=== PATIENT | female | born 1945 | race African-American/Black ===

== ENCOUNTER 2019-06-25 04:07 | Inpatient (IN) | payer MEDICARE, MEDICAID ==
[2019-06-25] MEDS ORDERED: IPRATROPIUM 0.02% NEBU 2.5 ML IH ONE ×2 (04:28→06:39)
[2019-06-25] MEDS ORDERED: ALBUTEROL 2.5 MG/3 ML NEBU IH ONE ×2 (04:28→06:39)
[2019-06-25] MEDS ORDERED: MAGNESIUM SULFATE 2 GM/50 ML BAG IV ONE (04:35)
[2019-06-25] MEDS ORDERED: methylPREDNISolone Sod Succinate 125 MG/2 ML INJ IV ONE (04:35)
[2019-06-25 04:51] LABS: Basophils % (Auto) 0.5 % (0.0-1.8); Eosinophils # (Auto) 0.7 K/mm3 (0.0-0.4); Eosinophils % (Auto) 7.3 % (0.0-4.3); Hematocrit 43.8 % (30.3-42.9); Hemoglobin 14.2 gm/dl (10.1-14.3); Lymphocytes # (Auto) 4.1 K/mm3 (1.2-5.4); Lymphocytes % (Auto) 40.3 % (13.4-35.0); Mean Corpuscular HGB Conc 33 % (30-34); Mean Corpuscular Volume 82 fl (79-97); Monocytes # (Auto) 0.7 K/mm3 (0.0-0.8); Monocytes % (Auto) 7.2 % (0.0-7.3); Platelet Count 194 K/mm3 (140-440); Red Blood Count 5.36 M/mm3 (3.65-5.03); Red Cell Distribution Width 14.4 % (13.2-15.2)
[2019-06-25 05:01] LABS: INR 0.94 (0.87-1.13)
[2019-06-25 05:02] LABS: Partial Thromboplastin Time 30.3 Sec. (24.2-36.6)
[2019-06-25 05:05] LABS: BUN/Creatinine Ratio 37; Blood Urea Nitrogen 26 mg/dL (7-17); Calcium 8.7 mg/dL (8.4-10.2); Hemolysis Index 15
--- NOTE | 2019-06-25 05:05 | XRay Report ---
CHEST 1 VIEW INDICATION / CLINICAL INFORMATION: sob. COMPARISON: Chest radiograph 02/11/2015 FINDINGS: SUPPORT DEVICES: None. HEART / MEDIASTINUM: Stable cardiomegaly. There is prominence of the main pulmonary arteries suggesti ng pulmonary arterial hypertension. LUNGS / PLEURA: No significant pulmonary or pleural abnormality. No pneumothorax. ADDITIONAL FINDINGS: No significant additional findings. IMPRESSION: 1. No acute cardiopulmonary abnormality identified. 2. Stable cardiomegaly, and prominence of the main pulmonary arteries suggesting pulmonary arterial h ypertension. Signer Name: Tali Addison MD Signed: 06/25/2019 5:00 AM Workstation Name: [id number]
--- NOTE | 2019-06-25 06:22 | Emergency Department Report ---
ED General Adult HPI - General Chief complaint: Dyspnea/Respdistress Stated complaint: SOB, COUGHING, GLORIA WITH INHALER Time Seen by Provider: 06/25/19 06:08 Source: family, RN notes reviewed, old records reviewed Mode of arrival: Wheelchair Limitations: Language Barrier - History of Present Illness Initial comments: [place] Citizen dehorner: [id number] This is a 73-year-old female. This patient is not known to this provider previously. She does not know who her primary care doctor is. She is not sure what past medical history she has. Apparently, as per documentation, may have a history of hypertension, congestive heart failure, asthma Reportedly also has a history of chronic back pain, leg pain, and sleep apnea patient presents to the ER today with the complaints of pain and the shortness of breath, dry cough. This has been going on for 2-3 days. She denies DVT, pulmonary embolism risk factors. She endorses chronic back pain. She denies additional pain. She is given albuterol, Atrovent, steroids and magnesium. This did not really improve her symptoms. After this aforementioned therapy, still found to be hypoxic, saturating 89, 90% on room air, with labored breathing. Arterial blood gas demonstrates PaO2 of 60 on room air, consistent with presumed acute hypoxemic respiratory failure. -: Gradual Severity scale (0 -10): 0 Consistency: constant Improves with: rest Worsens with: movement - Related Data Home Medications Medication Instructions Recorded Confirmed Last Taken Benazepril HCl [Lotensin] 20 mg PO DAILY 06/25/19 06/25/19 Unknown Hydrochlorothiazide 12.5 mg PO DAILY 06/25/19 06/25/19 Unknown Meloxicam [Mobic] 7.5 mg PO BID 06/25/19 06/25/19 Unknown Simvastatin 40 mg PO HS 06/25/19 06/25/19 Unknown Previous Rx's Medication Instructions Recorded Last Taken Type Ranitidine HCl [Zantac] 150 mg PO QDAY #30 tablet 02/15/15 Unknown Rx Allergies Allergy/AdvReac Type Severity Reaction Status Date / Time amoxicillin Allergy Unknown Verified 06/25/19 04:14 ED Review of Systems ROS: Stated complaint: SOB, COUGHING, GLORIA WITH INHALER Other details as noted in HPI Constitutional: malaise Eyes: denies: eye discharge ENT: congestion Respiratory: shortness of breath, wheezing Cardiovascular: denies: syncope Gastrointestinal: denies: vomiting Genitourinary: denies: dysuria Musculoskeletal: back pain (chronicchronic) Skin: denies: lesions Neurological: weakness ED Past Medical Hx - Past Medical History Previous Medical History?: Yes Hx Hypertension: Yes Hx Congestive Heart Failure: Yes Hx Asthma: Yes Additional medical history: chronic back/leg pain. sleep apnea (cpap) - Surgical History Past Surgical History?: No - Social History Smoking Status: Never Smoker Substance Use Type: None - Medications Home Medications: Home Medications Medication Instructions Recorded Confirmed Last Taken Type Ranitidine HCl [Zantac] 150 mg PO QDAY #30 tablet 02/15/15 06/25/19 Unknown Rx Benazepril HCl [Lotensin] 20 mg PO DAILY 06/25/19 06/25/19 Unknown History Hydrochlorothiazide 12.5 mg PO DAILY 06/25/19 06/25/19 Unknown History Meloxicam [Mobic] 7.5 mg PO BID 06/25/19 06/25/19 Unknown History Simvastatin 40 mg PO HS 06/25/19 06/25/19 Unknown History ED Physical Exam - General Limitations: Language Barrier General appearance: alert, anxious - Head Head exam: Present: atraumatic, normocephalic - Eye Eye exam: Present: normal appearance, EOMI. Absent: nystagmus - ENT ENT exam: Present: normal exam, normal orophraynx, mucous membranes moist, no rmal external ear exam - Neck Neck exam: Present: normal inspection, full ROM - Respiratory Respiratory exam: Present: respiratory distress, wheezes, rhonchi, accessory muscle use - Cardiovascular Cardiovascular Exam: Present: regular rate, normal rhythm, normal heart sounds. Absent: bradycardia, tachycardia, irregular rhythm, systolic murmur, diastolic murmur, rubs, gallop - GI/Abdominal GI/Abdominal exam: Present: soft. Absent: distended, tenderness, guarding, rebound, rigid, pulsatile mass - Extremities Exam Extremities exam: Present: normal inspection, full ROM, other (2+ pulses noted in the bilateral upper, lower extremities. Compartments soft. No long bony tenderness. The pelvis is stable.). Absent: pedal edema, joint swelling, calf tenderness - Back Exam Back exam: Present: normal inspection, full ROM. Absent: tenderness, CVA tenderness (R), CVA tenderness (L), paraspinal tenderness, vertebral tenderness - Neurological Exam Neurological exam: Present: alert, other (there is no facial droop. The tongue is midline. There is 5/5 strength bilateral upper, lower extremities.) - Psychiatric Psychiatric exam: Present: anxious - Skin Skin exam: Present: warm, dry, intact, normal color. Absent: rash ED Course Vital Signs 06/25/19 06/25/19 06/25/19 04:09 04:22 04:30 Temperature 98.9 F Pulse Rate 84 78 80 Pulse Rate [ Anterior Bilateral Throughout] Respiratory 16 19 28 H Rate Respiratory Rate [Anterior Bilateral Throughout] Blood Pressure 146/74 133/72 Blood Pressure [Left] O2 Sat by Pulse 90 89 97 Oximetry 06/25/19 06/25/19 06/25/19 04:33 04:36 04:46 Temperature Pulse Rate 77 81 Pulse Rate [ 89 Anterior Bilateral Throughout] Respiratory 20 23 Rate Respiratory 21 Rate [Anterior Bilateral Throughout] Blood Pressure 133/72 Blood Pressure 133/72 [Left] O2 Sat by Pulse 100 100 Oximetry 06/25/19 06/25/19 06/25/19 05:00 05:16 05:30 Temperature Pulse Rate 83 83 87 Pulse Rate [ Anterior Bilateral Throughout] Respiratory 25 H 20 15 Rate Respiratory Rate [Anterior Bilateral Throughout] Blood Pressure 133/72 133/72 133/72 Blood Pressure [Left] O2 Sat by Pulse 100 100 96 Oximetry 06/25/19 06/25/19 06/25/19 05:46 06:00 06:16 Temperature Pulse Rate 84 86 88 Pulse Rate [ Anterior Bilateral Throughout] Respiratory 18 32 H 18 Rate Respiratory Rate [Anterior Bilateral Throughout] Blood Pressure 133/72 133/72 133/72 Blood Pressure [Left] O2 Sat by Pulse 97 98 Oximetry 06/25/19 06/25/19 06/25/19 06:17 06:31 06:45 Temperature Pulse Rate 87 88 112 H Pulse Rate [ Anterior Bilateral Throughout] Respiratory 18 20 32 H Rate Respiratory Rate [Anterior Bilateral Throughout] Blood Pressure 122/62 122/62 Blood Pressure 122/62 [Left] O2 Sat by Pulse 99 92 93 Oximetry 06/25/19 06/25/19 06/25/19 07:01 07:15 07:31 Temperature Pulse Rate 90 90 87 Pulse Rate [ Anterior Bilateral Throughout] Respiratory 21 16 20 Rate Respiratory Rate [Anterior Bilateral Throughout] Blood Pressure 122/62 122/62 122/62 Blood Pressure [Left] O2 Sat by Pulse 91 90 99 Oximetry 06/25/19 06/25/19 06/25/19 07:33 07:45 07:58 Temperature 98.1 F Pulse Rate 88 90 Pulse Rate [ 80 Anterior Bilateral Throughout] Respiratory 18 29 H Rate Respiratory 18 Rate [Anterior Bilateral Throughout] Blood Pressure 122/62 Blood Pressure 122/62 [Left] O2 Sat by Pulse 100 95 Oximetry 06/25/19 06/25/19 06/25/19 08:15 08:45 09:01 Temperature Pulse Rate 89 91 H 94 H Pulse Rate [ Anterior Bilateral Throughout] Respiratory 19 21 22 Rate Respiratory Rate [Anterior Bilateral Throughout] Blood Pressure 123/68 123/68 123/68 Blood Pressure [Left] O2 Sat by Pulse 100 100 100 Oximetry 06/25/19 06/25/19 06/25/19 09:11 09:21 09:31 Temperature Pulse Rate 96 H 97 H 98 H Pulse Rate [ Anterior Bilateral Throughout] Respiratory 17 21 20 Rate Respiratory Rate [Anterior Bilateral Throughout] Blood Pressure 123/68 123/68 123/68 Blood Pressure [Left] O2 Sat by Pulse 100 100 100 Oximetry 06/25/19 06/25/19 09:41 09:51 Temperature Pulse Rate 100 H 102 H Pulse Rate [ Anterior Bilateral Throughout] Respiratory 21 18 Rate Respiratory Rate [Anterior Bilateral Throughout] Blood Pressure 123/68 123/68 Blood Pressure [Left] O2 Sat by Pulse 98 95 Oximetry ED Medical Decision Making - Lab Data Result diagrams: 06/26/19 05:11 06/26/19 05:11 Vital Signs 06/25/19 06/25/19 06/25/19 04:09 04:33 04:36 Temperature 98.9 F Pulse Rate 84 77 Pulse Rate [ 89 Anterior Bilateral Throughout] Respiratory 16 20 Rate Respiratory 21 Rate [Anterior Bilateral Throughout] Blood Pressure 146/74 Blood Pressure 133/72 [Left] O2 Sat by Pulse 90 100 Oximetry 06/25/19 06:17 Temperature Pulse Rate 87 Pulse Rate [ Anterior Bilateral Throughout] Respiratory 18 Rate Respiratory Rate [Anterior Bilateral Throughout] Blood Pressure Blood Pressure 122/62 [Left] O2 Sat by Pulse 99 Oximetry Lab Results 06/25/19 06/25/19 06/25/19 Range/Units Unknown Unknown Unknown WBC 10.1 (4.5-11.0) K/mm3 RBC 5.36 H (3.65-5.03) M/mm3 Hgb 14.2 (10.1-14.3) gm/dl Hct 43.8 H (30.3-42.9) % MCV 82 (79-97) fl MCH 27 L (28-32) pg MCHC 33 (30-34) % RDW 14.4 (13.2-15.2) % Plt Count 194 (140-440) K/mm3 Lymph % (Auto) 40.3 H (13.4-35.0) % [place] % (Auto) 7.2 (0.0-7.3) % Eos % (Auto) 7.3 H (0.0-4.3) % Baso % (Auto) 0.5 (0.0-1.8) % Lymph # 4.1 (1.2-5.4) K/mm3 [place] # 0.7 (0.0-0.8) K/mm3 Eos # 0.7 H (0.0-0.4) K/mm3 Baso # 0.0 (0.0-0.1) K/mm3 Seg Neutrophils % 44.7 (40.0-70.0) % Seg Neutrophils # 4.5 (1.8-7.7) K/mm3 PT 12.3 (12.2-14.9) Sec. INR 0.94 (0.87-1.13) APTT 30.3 (24.2-36.6) Sec. Sodium (137-145) mmol/L Potassium (3.6-5.0) mmol/L Chloride (98-107) mmol/L Carbon Dioxide (22-30) mmol/L Anion Gap mmol/L BUN (7-17) mg/dL Creatinine (0.7-1.2) mg/dL Estimated GFR ml/min BUN/Creatinine Ratio % Glucose (65-100) mg/dL Calcium (8.4-10.2) mg/dL Troponin T < 0.010 (0.00-0.029) ng/mL NT-Pro-B Natriuret Pep (0-900) pg/mL 06/25/19 Range/Units Unknown WBC (4.5-11.0) K/mm3 RBC (3.65-5.03) M/mm3 Hgb (10.1-14.3) gm/dl Hct (30.3-42.9) % MCV (79-97) fl MCH (28-32) pg MCHC (30-34) % RDW (13.2-15.2) % Plt Count (140-440) K/mm3 Lymph % (Auto) (13.4-35.0) % [place] % (Auto) (0.0-7.3) % Eos % (Auto) (0.0-4.3) % Baso % (Auto) (0.0-1.8) % Lymph # (1.2-5.4) K/mm3 [place] # (0.0-0.8) K/mm3 Eos # (0.0-0.4) K/mm3 Baso # (0.0-0.1) K/mm3 Seg Neutrophils % (40.0-70.0) % Seg Neutrophils # (1.8-7.7) K/mm3 PT (12.2-14.9) Sec. INR (0.87-1.13) APTT (24.2-36.6) Sec. Sodium 143 (137-145) mmol/L Potassium 4.0 (3.6-5.0) mmol/L Chloride 103.4 (98-107) mmol/L Carbon Dioxide 30 (22-30) mmol/L Anion Gap 14 mmol/L BUN 26 H (7-17) mg/dL Creatinine 0.7 (0.7-1.2) mg/dL Estimated GFR > 60 ml/min BUN/Creatinine Ratio 37 % Glucose 118 H (65-100) mg/dL Calcium 8.7 (8.4-10.2) mg/dL Troponin T (0.00-0.029) ng/mL NT-Pro-B Natriuret Pep 72.86 (0-900) pg/mL - EKG Data -: EKG Interpreted by Nc EKG shows normal: sinus rhythm Rate: normal - EKG Data 06/25/19 07:38 EKG today has motion artifact. This is a sinus rhythm, 72 bpm, normal axis, OK interval is prolonged, QTC is prolonged, there is an incomplete right bundle branch block, there is borderline left ventricular hypertrophy, the EKG is abn ormal, it appears to be unchanged from prior EKG January 2015. EKG is not consistent with ST elevation myocardial infarction. - Radiology Data Radiology results: report reviewed, image reviewed Print Report Referring Physician: NOHELIA DICKERSON Patient Name: JINNY GAMBOA Date of : 1945 Sex: Female Report Date: 2019-06-25 Report Status: Finalized Findings [facility] [address] [place] [address] XRay Report Signed Patient: JINNY GAMBOA MR#: [id number] : 1945 A cct:[id number] Age/Sex: 73 / F ADM Date: 06/25/19 Loc: ED Attending Dr: Ordering Physician: NOHELIA DICKERSON MD Date of Service: 06/25/19 Procedure(s): XR chest 1V ap Accession Number(s): [id number] cc: NOHELIA DICKERSON MD Fluoro Time In Minutes: CHEST 1 VIEW INDICATION / CLINICAL INFORMATION: sob. COMPARISON: Chest radiograph 02/11/2015 FINDINGS: SUPPORT DEVICES: None. HEART / MEDIASTINUM: Stable cardiomegaly. There is prominence of the main pulmonary arteries suggesting pulmonary arterial hypertension. LUNGS / PLEURA: No significant pulmonary or pleural abnormality. No pneumothorax. ADDITIONAL FINDINGS: No significant additional findings. IMPRESSION: 1. No acute cardiopulmonary abnormality identified. 2. Stable cardiomegaly, and prominence of the main pulmonary arteries suggesting pulmonary arterial hypertension. Signer Name: Tali Addison MD Signed: 06/25/2019 5:00 AM Workstation Name: [id number] Transcribed By: [facility] Dictated By: Tali Addison MD Electronically Authenticated By: Tali Addison MD Signed Date/Time: 06/25/19 0500 - Medical Decision Making Differential diagnosis, including but not limited to: Bronchitis, asthma, pneu monia, pneumothorax, respiratory failure Assessment and plan: 73-year-old female, cough, wheezing, shortness of breath, hypoxic, ABG showing acute hypoxemic respiratory failure, [place] Citizen afloat cryptologic manager does not endorse any pulmonary embolus or DVT risk factors, requires admission to the medical service for supportive care. Discussed this with the patient using afloat cryptologic manager, patient is amenable to this plan of care. Case presented to Hospital physician, Dr. Lisa Hernandez, who accepts the patient to the medical service for the aforementioned. Critical Care Time: Yes Critical care time in (mins) excluding proc time.: 35 Critical care attestation.: If time is entered above; I have spent that time in minutes in the direct care of this critically ill patient, excluding procedure time. ED Disposition Clinical Impression: Acute hypoxemic respiratory failure Acute bronchitis Qualifiers: Bronchitis organism: unspecified organism Qualified Code(s): J20.9 - Acute bronchitis, unspecified Disposition: DC-09 OP ADMIT IP TO THIS HOSP Is pt being admited?: Yes Condition: Good
[2019-06-25] MEDS ORDERED: DOXYCYCLINE 100 MG CAPSULE PO ONE (06:39)
[2019-06-25] MEDS ORDERED: SODIUM CHLORIDE 0.9% 500 ML 500 ML IV ONE (06:39)
[2019-06-25] MEDS ORDERED: ONDANSETRON 4 MG/2 ML INJ IV PRN (12:19)
[2019-06-25] MEDS ORDERED: ACETAMINOPHEN 325 MG TAB PO PRN (12:19)
[2019-06-25] MEDS ORDERED: ENOXAPARIN 100 MG/1 ML INJ SUB-Q SCH (13:00)
--- NOTE | 2019-06-25 13:00 | History and Physical Report ---
History of Present Illness Date of admission: 06/25/19 07:40 Chief complaint: Shortness of breath History of present illness: 73-year-old woman who is [place] speaking. 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 She presents to the hospital with 3 days of shortness of breath. She states that she has been progressively short of breath. She reports orthopnea, dyspnea on exertion. She denies chest pain or swelling in her legs. She denies wheezing. She states that she has heart disease, which I assume might be heart failure? She denies having any lung disease. She denies using oxygen at home. -She also reports that she is having some pain in her right scapular Past medical history Hypertension, osteoarthritis, Zantac, GERD -Her primary care doctor is Dr. Mack Poe Past surgical history; denies major surgeries Family history; her youngest sibling had a blood clot Social history, she lives with family, denies any history of alcohol abuse or drug abuse, admits to history of smoking, but quit over 20 years ago Medications and Allergies Allergies Allergy/AdvReac Type Severity Reaction Status Date / Time amoxicillin Allergy Unknown Verified 06/25/19 04:14 Home Medications Medication Instructions Recorded Confirmed Last Taken Type Benazepril/Hydrochlorothiazide 1 each PO DAILY #30 tablet 02/15/15 Unknown Rx [Lotensin Hct 20-12.5 mg Tablet] Ciprofloxacin HCl [Cipro] 500 mg PO Q12H #14 tab 02/15/15 Unknown Rx Meloxicam [Mobic] 15 mg PO DAILY #30 tablet 02/15/15 Unknown Rx Ranitidine HCl [Zantac] 150 mg PO QDAY #30 tablet 02/15/15 Unknown Rx Simvastatin [Zocor TAB] 40 mg PO QDAY #30 tablet 02/15/15 Unknown Rx amLODIPine [Norvasc] 10 mg PO DAILY #30 tablet 02/15/15 Unknown Rx Active Meds: Active Medications Acetaminophen (Tylenol) 650 mg PO Q4H PRN PRN Reason: Pain MILD(1-3)/Fever >100.5/ELIAS Amlodipine Besylate (Norvasc) 10 mg PO DAILY RANJITH Enoxaparin Sodium (Lovenox) 40 mg SUB-Q QDAY@2200 RANJITH Famotidine (Pepcid) 20 mg PO BID RANJITH Furosemide (Lasix) 40 mg IV 0600,1800 RANJITH Hydrochlorothiazide (Hctz) 12.5 mg PO QDAY [facility] Lisinopril (Zestril) 20 mg PO QDAY [facility] Meloxicam (Mobic) 15 mg PO QDAY RANJITH Ondansetron HCl (Zofran) 4 mg IV Q8H PRN PRN Reason: Nausea And Vomiting Pneumococcal Polyvalent Vaccine (Pneumovax 23) 0.5 ml IM .ONCE ONE Stop: 06/26/19 12:01 Pravastatin Sodium (Pravachol) 80 mg PO QHS RANJITH Sodium Chloride (Sodium Chloride Flush Syringe 10 Ml) 10 ml IV BID RANJITH Sodium Chloride (Sodium Chloride Flush Syringe 10 Ml) 10 ml IV PRN PRN PRN Reason: LINE FLUSH Review of Systems All systems: negative Constitutional: fatigue, no weight loss Ears, nose, mouth and throat: other (Chronic hearing loss, diminished hearing) Breasts: deferred Cardiovascular: orthopnea, no chest pain, no palpitations, no edema Respiratory: no cough Gastrointestinal: no abdominal pain Genitourinary Female: no dysuria Rectal: no pain Musculoskeletal: other (Right scapular pain) Integumentary: no rash Neurological: no head injury Psychiatric: no anxiety Endocrine: no cold intolerance Hematologic/Lymphatic: no easy bruising Allergic/Immunologic: no urticaria Exam - Constitutional Vitals: Temp Pulse Resp BP Pulse Ox 98.4 F 106 H 20 145/81 91 06/25/19 10:13 06/25/19 10:13 06/25/19 10:13 06/25/19 10:13 06/25/19 10:13 General appearance: Present: mild distress, well-nourished - EENT Eyes: Present: PERRL ENT: hearing intact, clear oral mucosa - Neck Neck: Present: supple, normal ROM - Respiratory Respiratory effort: normal Respiratory: bilateral: diminished, rales - Cardiovascular Heart Sounds: Present: S1 & S2. Absent: rub, click - Extremities Extremities: pulses symmetrical, No edema Peripheral Pulses: within normal limits - Abdominal General gastrointestinal: Present: soft, non-tender, non-distended, normal bowel sounds Female genitourinary: Present: normal - Integumentary Integumentary: Present: clear, warm, dry - Musculoskeletal Musculoskeletal: gait normal, strength equal bilaterally - Psychiatric Psychiatric: appropriate mood/affect, intact judgment & insight - Neurologic Neurologic: CNII-XII intact, moves all extremities Results - Labs CBC & Chem 7: 06/25/19 Unknown 06/25/19 Unknown Labs: Laboratory Last Values WBC 10.1 K/mm3 (4.5-11.0) 06/25/19 Unknown RBC 5.36 M/mm3 (3.65-5.03) H 06/25/19 Unknown Hgb 14.2 gm/dl (10.1-14.3) 06/25/19 Unknown Hct 43.8 % (30.3-42.9) H 06/25/19 Unknown MCV 82 fl (79-97) 06/25/19 Unknown MCH 27 pg (28-32) L 06/25/19 Unknown MCHC 33 % (30-34) 06/25/19 Unknown RDW 14.4 % (13.2-15.2) 06/25/19 Unknown Plt Count 194 K/mm3 (140-440) 06/25/19 Unknown Lymph % (Auto) 40.3 % (13.4-35.0) H 06/25/19 Unknown [place] % (Auto) 7.2 % (0.0-7.3) 06/25/19 Unknown Eos % (Auto) 7.3 % (0.0-4.3) H 06/25/19 Unknown Baso % (Auto) 0.5 % (0.0-1.8) 06/25/19 Unknown Lymph # 4.1 K/mm3 (1.2-5.4) 06/25/19 Unknown [place] # 0.7 K/mm3 (0.0-0.8) 06/25/19 Unknown Eos # 0.7 K/mm3 (0.0-0.4) H 06/25/19 Unknown Baso # 0.0 K/mm3 (0.0-0.1) 06/25/19 Unknown Seg Neutrophils % 44.7 % (40.0-70.0) 06/25/19 Unknown Seg Neutrophils # 4.5 K/mm3 (1.8-7.7) 06/25/19 Unknown PT 12.3 Sec. (12.2-14.9) 06/25/19 Unknown INR 0.94 (0.87-1.13) 06/25/19 Unknown APTT 30.3 Sec. (24.2-36.6) 06/25/19 Unknown POC ABG pH 7.358 (7.35-7.45) 06/25/19 07:20 POC ABG pCO2 50.8 (35-45) H 06/25/19 07:20 POC ABG pO2 60 (80-105) L 06/25/19 07:20 POC ABG HCO3 28.6 (22-26 mml/L) 06/25/19 07:20 POC ABG Total CO2 30 (23-27mmol/L) 06/25/19 07:20 POC ABG O2 Sat 89 06/25/19 07:20 POC ABG Base Excess 3 ((-2) - (+3)mmol/L) 06/25/19 07:20 FiO2 21 % 06/25/19 07:20 Sodium 143 mmol/L (137-145) 06/25/19 Unknown Potassium 4.0 mmol/L (3.6-5.0) 06/25/19 Unknown Chloride 103.4 mmol/L (98-107) 06/25/19 Unknown Carbon Dioxide 30 mmol/L (22-30) 06/25/19 Unknown Anion Gap 14 mmol/L 06/25/19 Unknown BUN 26 mg/dL (7-17) H 06/25/19 Unknown Creatinine 0.7 mg/dL (0.7-1.2) 06/25/19 Unknown Estimated GFR > 60 ml/min 06/25/19 Unknown BUN/Creatinine Ratio 37 % 06/25/19 Unknown Glucose 118 mg/dL (65-100) H 06/25/19 Unknown Calcium 8.7 mg/dL (8.4-10.2) 06/25/19 Unknown Magnesium 2.10 mg/dL (1.7-2.3) 06/25/19 Unknown Total Creatine Kinase 158 units/L (30-135) H 06/25/19 Unknown Troponin T < 0.010 ng/mL (0.00-0.029) 06/25/19 Unknown NT-Pro-B Natriuret Pep 72.86 pg/mL (0-900) 06/25/19 Unknown Assessment and Plan Assessment and plan: 73-year-old woman who presents to the hospital with orthopnea dyspnea on exertion x3 days Chest x-ray; prominence of main pulmonary artery suggesting pulmonary artery hypertension, no acute findings otherwise Labs; ABG shows PCO2 of 50 and PO2 of 60. pH is normal CHF exacerbation IV diuretics, optimize cardiac meds, cardiology consult Strict I's and O's, low-sodium diet, keep in negative balance, daily weights Obtain echocardiogram Acute hypoxic respiratory failure, O2 sats was 88 in the ER Supplemental oxygen as needed There is concern that patient may have a PE versus pulmonary hypertension Obtain CT angiogram of her chest, follow-up echo to look at estimated pulmonary pressures Hypertension, osteoarthritis, GERD Continue home medications DVT prophylaxis Lovenox VTE prophylaxis?: Chemical Plan of care discussed with patient/family: Yes
[2019-06-25] MEDS: ENOXAPARIN 80 MG/0.8 ML INJ SUB-Q SCH ×2 (14:29→22:23)
[2019-06-25] MEDS: FUROSEMIDE 40 MG/4 ML INJ IV SCH ×2 (14:35→17:26)
--- NOTE | 2019-06-25 15:29 | Consultation ---
History of Present Illness Consult date: 06/25/19 Requesting physician: JACK ZAMORA Consult reason: congestive heart failure History of present illness: The pt is a 73 YO female with a past medical history of HTN, HLP, asthma, sleep apnea. She is previously unknown to our practice. She presented with c/o SOB and orthopnea since 2AM this morning. Pt denies any chest pain, palpitations, n/v, diaphoresis, dizziness or syncope. She denies any edema although she c/o bilateral leg pain, particularly at night time. She denies any prior cardiac issues. She does not recall her PCP and it has been a while since she has seen a doctor. In ED, pt found to be hypoxic, saturating 89, 90% on room air, with labored breathing. ABG showed PaO2 of 60 on room air. Past History Past Medical History: hypertension, hyperlipidemia, other (asthma; SLIME) Medications and Allergies Allergies Allergy/AdvReac Type Severity Reaction Status Date / Time amoxicillin Allergy Unknown Verified 06/25/19 04:14 Home Medications Medication Instructions Recorded Confirmed Last Taken Type Ranitidine HCl [Zantac] 150 mg PO QDAY #30 tablet 02/15/15 06/25/19 Unknown Rx Benazepril HCl [Lotensin] 20 mg PO DAILY 06/25/19 06/25/19 Unknown History Hydrochlorothiazide 12.5 mg PO DAILY 06/25/19 06/25/19 Unknown History Meloxicam [Mobic] 7.5 mg PO BID 06/25/19 06/25/19 Unknown History Simvastatin 40 mg PO HS 06/25/19 06/25/19 Unknown History Active Meds: Active Medications Acetaminophen (Tylenol) 650 mg PO Q4H PRN PRN Reason: Pain MILD(1-3)/Fever >100.5/ELIAS Amlodipine Besylate (Norvasc) 10 mg PO DAILY RANJ[facility] Enoxaparin Sodium (Lovenox) 40 mg SUB-Q QDAY@2200 [facility] Enoxaparin Sodium (Lovenox) 70 mg SUB-Q Q12HR [facility] Last Admin: 06/25/19 14:29 Dose: 70 mg Documented by: Famotidine (Pepcid) 20 mg PO BID RANJITH Furosemide (Lasix) 40 mg IV 0600,1800 [facility] Last Admin: 06/25/19 14:35 Dose: 40 mg Documented by: Hydrochlorothiazide (Hctz) 12.5 mg PO QDAY [facility] Lisinopril (Zestril) 20 mg PO QDAY [facility] Meloxicam (Mobic) 15 mg PO QDAY [facility] Ondansetron HCl (Zofran) 4 mg IV Q8H PRN PRN Reason: Nausea And Vomiting Pneumococcal Polyvalent Vaccine (Pneumovax 23) 0.5 ml IM .ONCE ONE Stop: 06/26/19 12:01 Pravastatin Sodium (Pravachol) 80 mg PO QHS [facility] Sodium Chloride (Sodium Chloride Flush Syringe 10 Ml) 10 ml IV BID RANJITH Sodium Chloride (Sodium Chloride Flush Syringe 10 Ml) 10 ml IV PRN PRN PRN Reason: LINE FLUSH Review of Systems Constitutional: no weight loss, no weight gain, no fever, no chills, no sweats Ears, nose, mouth and throat: no ear pain, no nose pain, no sinus pressure, no sinus pain Cardiovascular: orthopnea, shortness of breath, dyspnea on exertion, no chest pain, no palpitations, no rapid/irregular heart beat, no edema, no syncope, no lightheadedness, no leg edema Respiratory: shortness of breath, dyspnea on exertion, no cough, no congestion, no wheezing, no pain on inspiration Gastrointestinal: no abdominal pain, no nausea, no vomiting, no diarrhea, no constipation, no change in bowel habits Genitourinary Female: no pelvic pain, no flank pain, no dysuria, no urinary frequency, no urgency Musculoskeletal: no neck stiffness, no neck pain, no shooting arm pain, no arm numbness/tingling, no low back pain, no shooting leg pain Integumentary: no rash, no pruritis, no redness, no sores, no wounds Neurological: no head injury, no paralysis, no weakness, no parathesias, no numbness, no tingling, no seizures, no syncope Psychiatric: no anxiety Endocrine: no cold intolerance, no heat intolerance Hematologic/Lymphatic: no easy bruising, no easy bleeding Allergic/Immunologic: no urticaria, no wheezing Physical Examination Vital Signs Temp Pulse Resp BP Pulse Ox 98.9 F 84 16 146/74 90 06/25/19 04:09 06/25/19 04:09 06/25/19 04:09 06/25/19 04:09 06/25/19 04:09 General appearance: no acute distress HEENT: Positive: PERRL, Normocephaly, Mucus Membranes Moist Neck: Positive: neck supple, trachea midline Cardiac: Positive: Reg Rate and Rhythm, S1/S2 Lungs: Positive: Decreased Breath Sounds, Rales (fine bibasilar ), Wheezes Neuro: Positive: Grossly Intact Abdomen: Negative: Tender Skin: Negative: Rash Musculoskeletal: No Pain Extremities: Absent: edema Results 06/25/19 Unknown 06/25/19 Unknown Coagulation 06/25/19 Range/Units Unknown PT 12.3 (12.2-14.9) Sec. INR 0.94 (0.87-1.13) APTT 30.3 (24.2-36.6) Sec. CBC 06/25/19 Range/Units Unknown WBC 10.1 (4.5-11.0) K/mm3 RBC 5.36 H (3.65-5.03) M/mm3 Hgb 14.2 (10.1-14.3) gm/dl Hct 43.8 H (30.3-42.9) % Plt Count 194 (140-440) K/mm3 Lymph # 4.1 (1.2-5.4) K/mm3 [place] # 0.7 (0.0-0.8) K/mm3 Eos # 0.7 H (0.0-0.4) K/mm3 Baso # 0.0 (0.0-0.1) K/mm3 Comprehensive Metabolic Panel 06/25/19 Range/Units Unknown Sodium 143 (137-145) mmol/L Potassium 4.0 (3.6-5.0) mmol/L Chloride 103.4 (98-107) mmol/L Carbon Dioxide 30 (22-30) mmol/L BUN 26 H (7-17) mg/dL Creatinine 0.7 (0.7-1.2) mg/dL Glucose 118 H (65-100) mg/dL Calcium 8.7 (8.4-10.2) mg/dL - Imaging and Cardiology Echo: pending EKG: report reviewed, image reviewed EKG interpretations - Telemetry EKG Rhythm: Sinus Rhythm - EKG Sinus rhythms and dysrhythmias: sinus rhythm AV and intraventricular conduction: right bundle branch block (incomplete) Assessment and Plan DDimer elevated - pt pending chest CTA. Obtain echo. Agree with present cardiac management. Further recs to follow per hospital cou rse. The patient has been seen in conjunction with Dr. Lundberg who agrees with the assessment and plan of care. - Patient Problems (1) Acute heart failure Current Visit: Yes Status: Suspected (2) Acute respiratory failure Current Visit: Yes Status: Acute (3) Elevated d-dimer Current Visit: Yes Status: Acute (4) HTN (hypertension) Current Visit: Yes Status: Chronic Qualifiers: Hypertension type: essential hypertension Qualified Code(s): I10 - Esse ntial (primary) hypertension (5) Asthma Current Visit: Yes Status: Chronic (6) Sleep apnea Current Visit: Yes Status: Chronic (7) Hyperlipidemia Current Visit: Yes Status: Chronic
--- NOTE | 2019-06-25 21:29 | Cat Scan Report ---
CTA of the chest with 3D Reconstruction Indication: ,sob, hypoxia Technique: TECHNIQUE: Axial CT images were obtained through the chest after injection of 100 cc of Omnipaque 350 IV contrast. 3 plane MIP reconstructions were produced. All CT scans at this location are performed using CT dose reduction for ALARA by means of automated exposure control. COMPARISON: None Automatic exposure control was utilized in an attempt to reduce radiation dose. Findings: Pulmonary arteries: The main pulmonary artery and right and left pulmonary artery branches fill satis factorily with contrast. No pulmonary embolus is seen. Lungs: There is a 3 mm nodule in the right middle lobe, series 3 image 259. There is a 7mm groundglas s density in the right lower lobe, series 3 image 268. There is mild atelectasis in both lung bases Mediastinum: Heart size is normal. No adenopathy is seen. Aorta: Normal in diameter. No dissection seen within limits of this exam. Impression: No pulmonary embolus is seen There is an incidental 7 mm subsolid nodule in the right lower lobe and an incidental 3 mm nodule in the right middle lobe. INCIDENTAL PULMONARY NODULE RECOMMENDATION Recommendation: Subsolid Nodule (Ground glass) >=6 mm - CT at 6-12 months to confirm persistence, then CT every 2 years until 5 years Note These recommendations do not apply to lung cancer screening, patients with immunosuppression, o r patients with known primary cancer. Note Newly detected indeterminate nodule in persons 35 years of age or older. Persons under the age of 35 should not receive follow-up unless there is a known primary cancer. Low Risk Patient -- minimal or absent history of smoking and of other known risk factors. High Risk Patient -- history of smoking or of other known risk factors. Nodule dimensions are average of long and short axes, rounded to the nearest millimeter. Based on 2017 Fleischner Society Guidelines found in Radiology 2017 284:228-243. [email or web address] Signer Name: Johnny Albarran MD Signed: 06/25/2019 9:25 PM Workstation Name: [id number]
[2019-06-25] MEDS: ENOXAPARIN 40 MG/0.4 ML INJ SUB-Q SCH (22:24)
[2019-06-25] MEDS: PRAVASTATIN 80 MG TAB PO SCH (22:24)
[2019-06-25] MEDS: FAMOTIDINE 20 MG TAB PO SCH (22:24)
--- NOTE | 2019-06-25 22:56 | Event Note ---
Date: 06/25/19 CTA of chest was negative for PE however incidental finding of 7 mm of solid nodule in right lower lobe and 3 mm nodule in right middle lobe. Pulmonary consulted.
--- NOTE | 2019-06-26 01:14 | Vascular Lab Report ---
DUPLEX DOPPLER LOWER EXTREMITY VEINS, BILATERAL INDICATION / CLINICAL INFORMATION: LE edema. TECHNIQUE: Duplex doppler imaging was performed through the veins of both lower extremities using venous elen sanya and other maneuvers. COMPARISON: None available. FINDINGS: Right Common Femoral vein: Negative. Right Femoral vein: Negative. Right Popliteal vein: Negative. Right Calf veins: Negative. Left Common Femoral vein: Negative. Left Femoral vein: Negative. Left Popliteal vein: Negative. Left Calf veins: Negative. Additional findings: None. IMPRESSION: 1. No sonographic evidence for DVT in either lower extremity. Signer Name: Tali Addison MD Signed: 06/26/2019 1:10 AM Workstation Name: [id number]
[2019-06-26 05:40] LABS: Basophils % (Auto) 0.2 % (0.0-1.8); Hematocrit 42.4 % (30.3-42.9); Hemoglobin 13.9 gm/dl (10.1-14.3); Lymphocytes # (Auto) 1.7 K/mm3 (1.2-5.4); Lymphocytes % (Auto) 11.7 % (13.4-35.0); Mean Corpuscular HGB Conc 33 % (30-34); Mean Corpuscular Volume 81 fl (79-97); Monocytes # (Auto) 0.9 K/mm3 (0.0-0.8); Monocytes % (Auto) 6.1 % (0.0-7.3); Red Blood Count 5.21 M/mm3 (3.65-5.03); Red Cell Distribution Width 14.2 % (13.2-15.2)
[2019-06-26 05:42] LABS: Platelet Count 204 K/mm3 (140-440)
[2019-06-26] MEDS: FUROSEMIDE 40 MG/4 ML INJ IV SCH ×2 (06:15→17:23)
[2019-06-26 07:00] LABS: BUN/Creatinine Ratio 33; Blood Urea Nitrogen 23 mg/dL (7-17); Calcium 8.6 mg/dL (8.4-10.2); Hemolysis Index 16
--- NOTE | 2019-06-26 09:35 | Consultation ---
History of Present Illness Consult date: 06/26/19 Requesting physician: TAHIRA CASTELLON Reason for consult: abnormal CXR/CT History of present illness: 73 y/o female admitted on yesterday with shortness of breath and orthopnea. In ED patient had a room air sat of of 89-90. ABG showed a PaO2 of 60 which is the low end of normal. Labs ordered and patient had an elevated D-Dimer. I could not find any other risk factors for VTE so CTA was done based of this. Negative for thromboembolism but did reveal 2 subcentimeter nodules, one in the right lower lobe in the other in the right middle lobe for which pulmonary has been consulted. Unable to see the images and can only go off radiology report at this time. Past History Past Medical History: hypertension, hyperlipidemia, other (asthma; SLIME) Medications and Allergies Allergies Allergy/AdvReac Type Severity Reaction Status Date / Time amoxicillin Allergy Unknown Verified 06/25/19 04:14 Home Medications Medication Instructions Recorded Confirmed Last Taken Type Ranitidine HCl [Zantac] 150 mg PO QDAY #30 tablet 02/15/15 06/25/19 Unknown Rx Benazepril HCl [Lotensin] 20 mg PO DAILY 06/25/19 06/25/19 Unknown History Hydrochlorothiazide 12.5 mg PO DAILY 06/25/19 06/25/19 Unknown History Meloxicam [Mobic] 7.5 mg PO BID 06/25/19 06/25/19 Unknown History Simvastatin 40 mg PO HS 06/25/19 06/25/19 Unknown History Active Meds: Active Medications Acetaminophen (Tylenol) 650 mg PO Q4H PRN PRN Reason: Pain MILD(1-3)/Fever >100.5/ELIAS Last Admin: 06/26/19 02:25 Dose: 650 mg Documented by: Amlodipine Besylate (Norvasc) 10 mg PO DAILY [facility] Enoxaparin Sodium (Lovenox) 40 mg SUB-Q QDAY@2200 [facility] Last Admin: 06/25/19 22:24 Dose: 40 mg Documented by: Famotidine (Pepcid) 20 mg PO BID [facility] Last Admin: 06/25/19 22:24 Dose: 20 mg Documented by: Furosemide (Lasix) 40 mg IV 0600,1800 [facility] Last Admin: 06/26/19 06:15 Dose: 40 mg Documented by: Lisinopril (Zestril) 20 mg PO QDAY [facility] Meloxicam (Mobic) 15 mg PO QDAY [facility] Ondansetron HCl (Zofran) 4 mg IV Q8H PRN PRN Reason: Nausea And Vomiting Pneumococcal Polyvalent Vaccine (Pneumovax 23) 0.5 ml IM .ONCE ONE Stop: 06/26/19 12:01 Pravastatin Sodium (Pravachol) 80 mg PO QHS [facility] Last Admin: 06/25/19 22:24 Dose: 80 mg Documented by: Sodium Chloride (Sodium Chloride Flush Syringe 10 Ml) 10 ml IV BID [facility] Last Admin: 06/25/19 22:25 Dose: 10 ml Documented by: Sodium Chloride (Sodium Chloride Flush Syringe 10 Ml) 10 ml IV PRN PRN PRN Reason: LINE FLUSH Physical Examination Vital signs: Vital Signs Temp Pulse Resp BP Pulse Ox 98.9 F 84 16 146/74 90 06/25/19 04:09 06/25/19 04:09 06/25/19 04:09 06/25/19 04:09 06/25/19 04:09 Results - Laboratory Findings CBC and BMP: 06/26/19 05:11 06/27/19 05:11 ABG POC ABG pH 7.358 (7.35-7.45) 06/25/19 07:20 POC ABG pCO2 50.8 (35-45) H 06/25/19 07:20 POC ABG pO2 60 (80-105) L 06/25/19 07:20 POC ABG HCO3 28.6 (22-26 mml/L) 06/25/19 07:20 POC ABG Total CO2 30 (23-27mmol/L) 06/25/19 07:20 POC ABG O2 Sat 89 06/25/19 07:20 PT/INR, D-dimer PT 12.3 Sec. (12.2-14.9) 06/25/19 Unknown INR 0.94 (0.87-1.13) 06/25/19 Unknown D-Dimer 281.82 ng/mlDDU (0-234) H 06/25/19 12:42 Abnormal lab findings: Abnormal Labs 06/25/19 06/25/19 06/25/19 07:20 12:42 Unknown WBC RBC 5.36 H Hct 43.8 H MCH 27 L Lymph % (Auto) 40.3 H Eos % (Auto) 7.3 H [place] # Eos # 0.7 H Seg Neutrophils % Seg Neutrophils # D-Dimer 281.82 H POC ABG pCO2 50.8 H POC ABG pO2 60 L BUN Glucose Total Creatine Kinase 06/25/19 06/25/19 06/26/19 Unknown Unknown 05:11 WBC 14.7 H RBC 5.21 H Hct MCH 27 L Lymph % (Auto) 11.7 L Eos % (Auto) [place] # 0.9 H Eos # Seg Neutrophils % 82.0 H Seg Neutrophils # 12.0 H D-Dimer POC ABG pCO2 POC ABG pO2 BUN 26 H Glucose 118 H Total Creatine Kinase 158 H 06/26/19 05:11 WBC RBC Hct MCH Lymph % (Auto) Eos % (Auto) [place] # Eos # Seg Neutrophils % Seg Neutrophils # D-Dimer POC ABG pCO2 POC ABG pO2 BUN 23 H Glucose 121 H Total Creatine Kinase - Diagnostic Findings CT scan - chest: report reviewed Assessment and Plan 73 y/o female with abnormal CT chest 1. Agree with radiology in regards to recs for follow up imaging. Given these are subcentimeter nodules they cannot be seen on PET scan so this is not indicated at this time. Will arrange follow up in the office. Most likely will repeat in imaging in 8-12 months. Spoke to Granddaughter over the phone who served as my ice rink attendant.
[2019-06-26] MEDS ORDERED: hydroCHLOROthiazide 12.5 MG CAP PO SCH (10:00)
[2019-06-26] MEDS ORDERED: NON-FORMULARY EACH (Meloxicam [Mobic] 15 MG) PO SCH (10:00)
[2019-06-26] MEDS ORDERED: NON-FORMULARY EACH (Ranitidine Hcl [Zantac] 150 MG) PO SCH (10:00)
[2019-06-26] MEDS ORDERED: NON-FORMULARY EACH (Simvastatin 40 MG) PO SCH (10:00)
[2019-06-26] MEDS ORDERED: [UNRECOGNIZED DRUG - OTHER] PO SCH (10:00)
[2019-06-26] MEDS ORDERED: HYDROCHLOROTHIAZIDE PO SCH (10:00)
[2019-06-26] MEDS ORDERED: BENAZEPRIL PO SCH (10:00)
[2019-06-26] MEDS: MELOXICAM 7.5 MG TAB PO SCH (10:07)
[2019-06-26] MEDS: FAMOTIDINE 20 MG TAB PO SCH ×2 (10:08→22:37)
[2019-06-26] MEDS: amLODIPine 10 MG TAB PO SCH (10:09)
[2019-06-26] MEDS: LISINOPRIL 20 MG TAB PO SCH (10:11)
--- NOTE | 2019-06-26 10:34 | Progress Note ---
Assessment and Plan DDimer elevated - chest CTA negative for PE, pulmonary nodules noted. Echo reviewed - EF 80-85%, trace MR and TR, mild , impaired relaxation. Pt with cough and wheezing, pulmonary nodules noted on chest CTA - pulmonary has been consulted. Cont present cardiac management. The patient has been seen in conjunction with Dr. Lundberg who agrees with the assessment and plan of care. - Patient Problems (1) Acute heart failure with preserved ejection fraction (HFpEF) Current Visit: Yes Status: Acute (2) Mild aortic stenosis Current Visit: Yes Status: Chronic (3) Acute respiratory failure Current Visit: Yes Status: Acute (4) Elevated d-dimer Current Visit: Yes Status: Acute (5) HTN (hypertension) Current Visit: Yes Status: Chronic Qualifiers: Hypertension type: essential hypertension Qualified Code(s): I10 - Essential (primary) hypertension (6) Asthma Current Visit: Yes Status: Chronic (7) Sleep apnea Current Visit: Yes Status: Chronic (8) Hyperlipidemia Current Visit: Yes Status: Chronic (9) Pulmonary nodules Current Visit: Yes Status: Acute Subjective Date of service: 06/26/19 Principal diagnosis: HF Interval history: pt sitting up in bed, c/o cough and some epigastric pain with coughing. in SR on tele. Objective Last Vital Signs Temp 97.9 F 06/26/19 07:29 Pulse 87 06/26/19 10:09 Resp 20 06/26/19 07:29 BP 143/76 06/26/19 10:09 Pulse Ox 93 06/26/19 07:29 - Physical Examination HEENT: Positive: PERRL, Normocephaly, Mucus Membranes Moist Neck: Positive: neck supple, trachea midline Cardiac: Positive: Reg Rate and Rhythm, S1/S2 Lungs: Positive: Decreased Breath Sounds, Wheezes Neuro: Positive: Grossly Intact Abdomen: Negative: Tender Skin: Negative: Rash Musculoskeletal: No Pain Extremities: Absent: edema - Labs and Meds CBC 06/26/19 Range/Units 05:11 WBC 14.7 H (4.5-11.0) K/mm3 RBC 5.21 H (3.65-5.03) M/mm3 Hgb 13.9 (10.1-14.3) gm/dl Hct 42.4 (30.3-42.9) % Plt Count 204 (140-440) K/mm3 Lymph # 1.7 (1.2-5.4) K/mm3 [place] # 0.9 H (0.0-0.8) K/mm3 Eos # 0.0 (0.0-0.4) K/mm3 Baso # 0.0 (0.0-0.1) K/mm3 Comprehensive Metabolic Panel 06/26/19 Range/Units 05:11 Sodium 140 (137-145) mmol/L Potassium 4.8 (3.6-5.0) mmol/L Chloride 102.5 (98-107) mmol/L Carbon Dioxide 29 (22-30) mmol/L BUN 23 H (7-17) mg/dL Creatinine 0.7 (0.7-1.2) mg/dL Glucose 121 H (65-100) mg/dL Calcium 8.6 (8.4-10.2) mg/dL - Imaging and Cardiology EKG: report reviewed, image reviewed Echo: pending - EKG Sinus rhythms and dysrhythmias: sinus rhythm AV and intraventricular conduction: right bundle branch block (incomplete)
--- NOTE | 2019-06-26 11:50 | Progress Note ---
Subjective Date of service: 06/26/19 Principal diagnosis: HF Interval history: 73-year-old woman who is [place] speaking. History was obtained using Terra, senior dentist. She presents to the hospital with 3 days of shortness of breath. She states that she has been progressively short of breath. She reports orthopnea, dyspnea on exertion. She denies chest pain or swelling in her legs. She denies wheezing. She states that she has heart disease, which I assume might be heart failure? She denies having any lung disease. She denies using oxygen at home. Acute failure with preserved ejection fraction IV diuretics, optimize cardiac meds, cardiology consult Strict I's and O's, low-sodium diet, keep in negative balance, daily weights Echocardiogram - impaired diastolic function with EF of 80-85% Acute hypoxic respiratory failure, O2 sats was 88 in the ER Supplemental oxygen as needed There is concern that patient may have a PE versus pulmonary hypertension CT angiogram of her chest showed no PE, Echo showed 83-5% ejection fraction with diastolic dysfunction Elevated d-dimer Negative CT angiogram of the chest Hypertension, Continue home medications GERD Pepcid DVT prophylaxis Lovenox VTE prophylaxis?: Chemical Plan of care discussed with patient/family: Yes Objective - Constitutional Vitals: Vital Signs - 12hr 06/26/19 06/26/19 06/26/19 02:12 02:25 03:25 Temperature 98.5 F Pulse Rate 89 Respiratory 16 18 21 Rate Blood Pressure 137/76 O2 Sat by Pulse 95 Oximetry 06/26/19 06/26/19 06/26/19 03:55 07:29 10:09 Temperature 97.9 F Pulse Rate 89 81 87 Respiratory 20 Rate Blood Pressure 139/80 143/76 O2 Sat by Pulse 93 Oximetry - Labs CBC & Chem 7: 06/26/19 05:11 06/26/19 05:11 Labs: Abnormal lab results 06/25/19 06/26/19 06/26/19 Range/Units 12:42 05:11 05:11 WBC 14.7 H (4.5-11.0) K/mm3 RBC 5.21 H (3.65-5.03) M/mm3 MCH 27 L (28-32) pg Lymph % (Auto) 11.7 L (13.4-35.0) % [place] # 0.9 H (0.0-0.8) K/mm3 Seg Neutrophils % 82.0 H (40.0-70.0) % Seg Neutrophils # 12.0 H (1.8-7.7) K/mm3 D-Dimer 281.82 H (0-234) ng/mlDDU BUN 23 H (7-17) mg/dL Glucose 121 H (65-100) mg/dL
[2019-06-26] MEDS ORDERED: FLU VACC QUAD 2019-20 (3 YR UP)/PF 60 MCG/0.5 ML SYRINGE IM ONE (12:00)
[2019-06-26] MEDS ORDERED: PNEUMOCOCCAL 23 Valent 0.5 ML VIAL IM ONE (12:00)
[2019-06-26] MEDS: ENOXAPARIN 40 MG/0.4 ML INJ SUB-Q SCH (22:36)
[2019-06-26] MEDS: PRAVASTATIN 80 MG TAB PO SCH (22:37)
[2019-06-27] MEDS: FUROSEMIDE 40 MG/4 ML INJ IV SCH ×2 (06:03→17:53)
[2019-06-27 06:21] LABS: Alanine Aminotransferase 22 units/L (7-56); Albumin 3.5 g/dL (3.9-5); BUN/Creatinine Ratio 39; Blood Urea Nitrogen 27 mg/dL (7-17); Calcium 8.5 mg/dL (8.4-10.2); Hemolysis Index 6
[2019-06-27] MEDS: amLODIPine 10 MG TAB PO SCH (09:55)
[2019-06-27] MEDS: MELOXICAM 7.5 MG TAB PO SCH (09:56)
[2019-06-27] MEDS: FAMOTIDINE 20 MG TAB PO SCH ×2 (09:56→21:29)
[2019-06-27] MEDS: LISINOPRIL 20 MG TAB PO SCH (09:57)
--- NOTE | 2019-06-27 10:26 | Progress Note ---
Assessment and Plan Pt still with c/o sob and wheezing. Initiate duonebs. Pulmonary is following. Cont present cardiac management. The patient has been seen in conjunction with Dr. Lundberg who agrees with the assessment and plan of care. - Patient Problems (1) Acute heart failure with preserved ejection fraction (HFpEF) Current Visit: Yes Status: Acute (2) Mild aortic stenosis Current Visit: Yes Status: Chronic (3) Acute respiratory failure Current Visit: Yes Status: Acute (4) Elevated d-dimer Current Visit: Yes Status: Acute (5) HTN (hypertension) Current Visit: Yes Status: Chronic Qualifiers: Hypertension type: essential hypertension Qualified Code(s): I10 - Essential (primary) hypertension (6) Asthma Current Visit: Yes Status: Chronic (7) Sleep apnea Current Visit: Yes Status: Chronic (8) Hyperlipidemia Current Visit: Yes Status: Chronic (9) Pulmonary nodules Current Visit: Yes Status: Acute Subjective Date of service: 06/27/19 Principal diagnosis: HF Interval history: pt sitting up in bed, states she is feeling a little better today. Objective Last Vital Signs Temp 97.9 F 06/27/19 07:53 Pulse 72 06/27/19 09:55 Resp 20 06/27/19 07:53 BP 110/67 06/27/19 09:55 Pulse Ox 96 06/27/19 07:53 - Physical Examination General: No Apparent Distress HEENT: Positive: PERRL, Normocephaly, Mucus Membranes Moist Neck: Positive: neck supple, trachea midline Cardiac: Positive: Reg Rate and Rhythm, S1/S2 Lungs: Positive: Decreased Breath Sounds, Wheezes Neuro: Positive: Grossly Intact Abdomen: Negative: Tender Skin: Negative: Rash Musculoskeletal: No Pain Extremities: Absent: edema - Labs and Meds Cardiac Enzymes 06/27/19 Range/Units 05:11 AST 19 (5-40) units/L Comprehensive Metabolic Panel 06/27/19 Range/Units 05:11 Sodium 142 (137-145) mmol/L Potassium 3.6 D (3.6-5.0) mmol/L Chloride 103.2 (98-107) mmol/L Carbon Dioxide 29 (22-30) mmol/L BUN 27 H (7-17) mg/dL Creatinine 0.7 (0.7-1.2) mg/dL Glucose 151 H (65-100) mg/dL Calcium 8.5 (8.4-10.2) mg/dL AST 19 (5-40) units/L ALT 22 (7-56) units/L Alkaline Phosphatase 97 (35-129) units/L Total Protein 6.5 (6.3-8.2) g/dL Albumin 3.5 L (3.9-5) g/dL - Imaging and Cardiology EKG: report reviewed, image reviewed Echo: report reviewed (EF 80-85%, trace MR and TR, mild , impaired relaxation. ) - EKG Sinus rhythms and dysrhythmias: sinus rhythm AV and intraventricular conduction: right bundle branch block (incomplete)
--- NOTE | 2019-06-27 12:46 | Progress Note ---
Assessment and Plan Assessment and plan: 73-year-old woman who is [place]yan speaking. 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 She presents to the hospital with 3 days of shortness of breath. She states that she has been progressively short of breath. She reports orthopnea, dyspnea on exertion. She denies chest pain or swelling in her legs. She denies wheezing. She states that she has heart disease, which I assume might be heart failure? She denies having any lung disease. She denies using oxygen at home. Acute heart failure with preserved ejection fraction IV diuretics, optimize cardiac meds, cardiology consult Strict I's and O's, low-sodium diet, keep in negative balance, daily weights Echocardiogram - impaired diastolic function with EF of 80-85% Acute hypoxic respiratory failure, O2 sats was 88 in the ER Supplemental oxygen as needed There is concern that patient may have a PE versus pulmonary hypertension CT angiogram of her chest showed no PE, Pulmonary nodules on CT Chest 7mm on RLL and 3mm on RML She was evaluated by Pulm To follow as outpatient Elevated d-dimer Negative CT angiogram of the chest Hypertension, Continue home medications GERD Pepcid DVT prophylaxis Lovenox History Interval history: Less shortness of breath less cough Hospitalist Physical - Physical exam Narrative exam: Gen: Not in acute distress, Lying in bed, obese HEENT: Normocephalic, atraumatic Neck: supple, no JVD Heart: S1 and S2 reg, no murmurs, rubs or gallop Lungs: Bilateral basal crackles, no rhonchi, no wheeze Abd: soft, non tender, non distended, normal BS, Ext: No edema, no clubbing, no cyanosis Neuro: Awake, alert, oriented X 3, no focal neurological signs - Constitutional Vitals: Temp Pulse Resp BP Pulse Ox 97.9 F 73 20 110/67 96 06/27/19 07:53 06/27/19 10:00 06/27/19 07:53 06/27/19 09:55 06/27/19 07:53 Results - Labs CBC & Chem 7: 06/26/19 05:11 06/27/19 05:11 Labs: Laboratory Last Values WBC 14.7 K/mm3 (4.5-11.0) H 06/26/19 05:11 RBC 5.21 M/mm3 (3.65-5.03) H 06/26/19 05:11 Hgb 13.9 gm/dl (10.1-14.3) 06/26/19 05:11 Hct 42.4 % (30.3-42.9) 06/26/19 05:11 MCV 81 fl (79-97) 06/26/19 05:11 MCH 27 pg (28-32) L 06/26/19 05:11 MCHC 33 % (30-34) 06/26/19 05:11 RDW 14.2 % (13.2-15.2) 06/26/19 05:11 Plt Count 204 K/mm3 (140-440) 06/26/19 05:11 Lymph % (Auto) 11.7 % (13.4-35.0) L 06/26/19 05:11 [place] % (Auto) 6.1 % (0.0-7.3) 06/26/19 05:11 Eos % (Auto) 0.0 % (0.0-4.3) 06/26/19 05:11 Baso % (Auto) 0.2 % (0.0-1.8) 06/26/19 05:11 Lymph # 1.7 K/mm3 (1.2-5.4) 06/26/19 05:11 [place] # 0.9 K/mm3 (0.0-0.8) H 06/26/19 05:11 Eos # 0.0 K/mm3 (0.0-0.4) 06/26/19 05:11 Baso # 0.0 K/mm3 (0.0-0.1) 06/26/19 05:11 Seg Neutrophils % 82.0 % (40.0-70.0) H 06/26/19 05:11 Seg Neutrophils # 12.0 K/mm3 (1.8-7.7) H 06/26/19 05:11 PT 12.3 Sec. (12.2-14.9) 06/25/19 Unknown INR 0.94 (0.87-1.13) 06/25/19 Unknown APTT 30.3 Sec. (24.2-36.6) 06/25/19 Unknown D-Dimer 281.82 ng/mlDDU (0-234) H 06/25/19 12:42 POC ABG pH 7.358 (7.35-7.45) 06/25/19 07:20 POC ABG pCO2 50.8 (35-45) H 06/25/19 07:20 POC ABG pO2 60 (80-105) L 06/25/19 07:20 POC ABG HCO3 28.6 (22-26 mml/L) 06/25/19 07:20 POC ABG Total CO2 30 (23-27mmol/L) 06/25/19 07:20 POC ABG O2 Sat 89 06/25/19 07:20 POC ABG Base Excess 3 ((-2) - (+3)mmol/L) 06/25/19 07:20 FiO2 21 % 06/25/19 07:20 Sodium 142 mmol/L (137-145) 06/27/19 05:11 Potassium 3.6 mmol/L (3.6-5.0) D 06/27/19 05:11 Chloride 103.2 mmol/L (98-107) 06/27/19 05:11 Carbon Dioxide 29 mmol/L (22-30) 06/27/19 05:11 Anion Gap 13 mmol/L 06/27/19 05:11 BUN 27 mg/dL (7-17) H 06/27/19 05:11 Creatinine 0.7 mg/dL (0.7-1.2) 06/27/19 05:11 Estimated GFR > 60 ml/min 06/27/19 05:11 BUN/Creatinine Ratio 39 % 06/27/19 05:11 Glucose 151 mg/dL (65-100) H 06/27/19 05:11 Calcium 8.5 mg/dL (8.4-10.2) 06/27/19 05:11 Magnesium 2.10 mg/dL (1.7-2.3) 06/25/19 Unknown Total Bilirubin 0.20 mg/dL (0.1-1.2) 06/27/19 05:11 AST 19 units/L (5-40) 06/27/19 05:11 ALT 22 units/L (7-56) 06/27/19 05:11 Alkaline Phosphatase 97 units/L (35-129) 06/27/19 05:11 Total Creatine Kinase 158 units/L (30-135) H 06/25/19 Unknown Troponin T < 0.010 ng/mL (0.00-0.029) 06/25/19 Unknown NT-Pro-B Natriuret Pep 72.86 pg/mL (0-900) 06/25/19 Unknown Total Protein 6.5 g/dL (6.3-8.2) 06/27/19 05:11 Albumin 3.5 g/dL (3.9-5) L 06/27/19 05:11 Albumin/Globulin Ratio 1.2 % 06/27/19 05:11 Active Medications - Current Medications Current Medications: Generic Name Dose Route Start Last Admin Trade Name Freq PRN Reason Stop Dose Admin Acetaminophen 650 mg 06/25/19 12:19 06/26/19 02:25 Tylenol PO 650 mg Q4H PRN Administration Pain MILD(1-3)/Fever >100.5/ELIAS Albuterol/Ipratropium 1 ampul 06/27/19 08:48 Duoneb *Not For Prn Use* IH TIDRT RANJITH Amlodipine Besylate 10 mg 06/26/19 10:00 06/27/19 09:55 Norvasc PO 10 mg DAILY RANJITH Administration Enoxaparin Sodium 40 mg 06/25/19 22:00 06/26/19 22:36 Lovenox SUB-Q 40 mg QDAY@2200 RANJITH Administration Famotidine 20 mg 06/25/19 22:00 06/27/19 09:56 Pepcid PO 20 mg BID RANJITH Administration Furosemide 40 mg 06/25/19 11:00 06/27/19 06:03 Lasix IV 40 mg 0600,1800 RANJITH Administration Lisinopril 20 mg 06/26/19 10:00 06/27/19 09:57 Zestril PO 20 mg QDAY RANJITH Administration Meloxicam 15 mg 06/26/19 10:00 06/27/19 09:56 Mobic PO 15 mg QDAY RANJITH Administration Ondansetron HCl 4 mg 06/25/19 12:19 Zofran IV Q8H PRN Nausea And Vomiting Pravastatin Sodium 80 mg 06/25/19 22:00 06/26/19 22:37 Pravachol PO 80 mg QHS RANJITH Administration Sodium Chloride 10 ml 06/25/19 22:00 06/27/19 09:57 Sodium Chloride Flush Syringe 10 Ml IV 10 ml BID RANJITH Administration Sodium Chloride 10 ml 06/25/19 12:19 Sodium Chloride Flush Syringe 10 Ml IV PRN PRN LINE FLUSH Nutrition/Malnutrition Assess - Dietary Evaluation Nutrition/Malnutrition Findings: Nutrition Notes Start: 06/26/19 09:58 Freq: Status: Active Protocol: Document 06/26/19 09:58 RS (Rec: 06/26/19 11:23 RS [id number]) Co-Sign 06/26/19 09:58 LM Nutrition Notes 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 Pt speaks little Turkish, but nurse reports good appetite, and ate 75% of breakfast. Pt is missing some teeth but refuses to have any diet modifications. Burn Absent Trauma Absent GI Symptoms None Food Allergy No Current % PO Good (75-100%) Minimum of two criteria No Is patient on ventilator? No Is Patient Ambulatory and/or Out of Bed Yes REE-([place]-ambulatory/OOB) [ 1497.652 [id number]] Calculation Used for Recommendations [place]-St Jeor Additional Notes PRO needs (1-1.2g): 72-86g/day Fluid needs: 1500-1900mL/day or per MD order Nutrition Intervention Revisit per MD consult or patient Sign Off request:
[2019-06-27] MEDS: IPRATROPIUM/ALBUTEROL SULFATE 3 ML AMPUL.NEB IH SCH ×2 (13:22→14:33)
[2019-06-27] MEDS ORDERED: ALBUTEROL 2.5 MG/3 ML NEBU IH PRN (14:22)
[2019-06-27] MEDS ORDERED: IPRATROPIUM/ALBUTEROL SULFATE 3 ML AMPUL.NEB IH SCH (20:00)
[2019-06-27] MEDS: PRAVASTATIN 80 MG TAB PO SCH (21:29)
[2019-06-27] MEDS: ENOXAPARIN 40 MG/0.4 ML INJ SUB-Q SCH (21:31)
[2019-06-28] MEDS: FUROSEMIDE 40 MG/4 ML INJ IV SCH (05:20)
[2019-06-28 05:30] LABS: Hemoglobin 13.9 gm/dl (10.1-14.3); Mean Corpuscular HGB Conc 32 % (30-34); Mean Corpuscular Volume 82 fl (79-97); Platelet Count 208 K/mm3 (140-440); Red Blood Count 5.24 M/mm3 (3.65-5.03); Red Cell Distribution Width 14.6 % (13.2-15.2)
[2019-06-28 05:53] LABS: BUN/Creatinine Ratio 32; Blood Urea Nitrogen 29 mg/dL (7-17); Calcium 8.5 mg/dL (8.4-10.2); Hemolysis Index 12
[2019-06-28] MEDS: IPRATROPIUM/ALBUTEROL SULFATE 3 ML AMPUL.NEB IH SCH ×2 (08:20→13:09)
--- NOTE | 2019-06-28 10:31 | Progress Note ---
Assessment and Plan Pt appears to be at euvolemia. Convert IV lasix to PO lasix 40mg daily. Cont all other present cardiac management. Clinically improving. Nothing further to add from cardiac perspective. Will sign off. Recommend follow up in our office with Dr. Lundberg within 3-5 days of discharge ([phone]). The patient has been seen in conjunction with Dr. Lundberg who agrees with the assessment and plan of care. - Patient Problems (1) Acute heart failure with preserved ejection fraction (HFpEF) Current Visit: Yes Status: Acute (2) Mild aortic stenosis Current Visit: Yes Status: Chronic (3) Acute respiratory failure Current Visit: Yes Status: Acute (4) Elevated d-dimer Current Visit: Yes Status: Acute (5) HTN (hypertension) Current Visit: Yes Status: Chronic Qualifiers: Hypertension type: essential hypertension Qualified Code(s): I10 - Essential (primary) hypertension (6) Asthma Current Visit: Yes Status: Chronic (7) Sleep apnea Current Visit: Yes Status: Chronic (8) Hyperlipidemia Current Visit: Yes Status: Chronic (9) Pulmonary nodules Current Visit: Yes Status: Acute Subjective Date of service: 06/28/19 Principal diagnosis: HF Interval history: pt sitting up in bed, states she is feeling better today. in SR. Objective Last Vital Signs Temp 97.9 F 06/28/19 07:31 Pulse 85 06/28/19 08:21 Resp 18 06/28/19 08:21 BP 100/59 06/28/19 07:31 Pulse Ox 95 06/28/19 08:23 - Physical Examination General: No Apparent Distress HEENT: Positive: PERRL, Normocephaly, Mucus Membranes Moist Neck: Positive: neck supple, trachea midline Cardiac: Positive: Reg Rate and Rhythm, S1/S2 Lungs: Positive: Decreased Breath Sounds Neuro: Positive: Grossly Intact Abdomen: Negative: Tender Skin: Negative: Rash Musculoskeletal: No Pain Extremities: Absent: edema - Labs and Meds CBC 06/28/19 Range/Units 04:46 WBC 8.0 (4.5-11.0) K/mm3 RBC 5.24 H (3.65-5.03) M/mm3 Hgb 13.9 (10.1-14.3) gm/dl Hct 43.0 H (30.3-42.9) % Plt Count 208 (140-440) K/mm3 Comprehensive Metabolic Panel 06/28/19 Range/Units 04:46 Sodium 141 (137-145) mmol/L Potassium 3.8 (3.6-5.0) mmol/L Chloride 98.7 (98-107) mmol/L Carbon Dioxide 32 H (22-30) mmol/L BUN 29 H (7-17) mg/dL Creatinine 0.9 (0.7-1.2) mg/dL Glucose 185 H (65-100) mg/dL Calcium 8.5 (8.4-10.2) mg/dL - Imaging and Cardiology EKG: report reviewed, image reviewed Echo: report reviewed (EF 80-85%, trace MR and TR, mild , impaired relaxation. ) - EKG Sinus rhythms and dysrhythmias: sinus rhythm AV and intraventricular conduction: right bundle branch block (incomplete)
[2019-06-28] MEDS: MELOXICAM 7.5 MG TAB PO SCH (10:34)
[2019-06-28] MEDS: FAMOTIDINE 20 MG TAB PO SCH (10:34)
[2019-06-28 10:42] VITALS: BP 103/58
[2019-06-28] MEDS: LISINOPRIL 20 MG TAB PO SCH (10:42)
[2019-06-28] MEDS: amLODIPine 10 MG TAB PO SCH (10:43)
--- NOTE | 2019-06-28 12:38 | Discharge Summary ---
Providers - Providers Date of Admission: 06/26/19 09:40 Date of discharge: 06/28/19 Attending physician: TROY JOHNSON 06/25/19 12:19 Consult to Physician [CONS] Routine Comment: SPOKE TO BEBE/ SERAFIN Consulting Provider: ANGELINA CHEN Physician Instructions: Reason For Exam: heart failure 06/25/19 12:53 Physical Therapy Evaluation and Treat [CONS] Routine Comment: Reason For Exam: Weakness 06/25/19 22:54 Consult to Physician [CONS] Routine Comment: called answ. serv./ serafin Consulting Provider: KATHRYN LEE Physician Instructions: Reason For Exam: pulmonary nodule: 7mm RLL, 3mm RML Primary care physician: RENATA OGLESBY Hospitalization Condition: Good Hospital course: Patient is 73-year-old woman who is Filipino speaking. 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 She presents to the hospital with 3 days of shortness of breath, orthopnea, dyspnea on exertion. She denies chest pain or swelling in her legs. She was seen and evaluated in Emergency Department and diagnosed with acute CHF. She was admitted, evaluated by Cardiology. EF found to be 80- 85%. She was diagnosed with acute diastolic CHF, treated with Lasix iv. She was found to have pulmonary nodules and was asked to follow as outpatient. She was discharged home on 06/28/19 Acute heart failure with preserved ejection fraction IV diuretics, optimized cardiac meds, cardiology consulted Strict I's and O's, low-sodium diet, keep in negative balance, daily weights Echocardiogram - impaired diastolic function with EF of 80-85% Acute hypoxic respiratory failure, O2 sats was 88 in the ER Supplemental oxygen given CT angiogram of her chest showed no PE, Pulmonary nodules on CT Chest 7mm on RLL and 3mm on RML She was evaluated by [employer] To follow as outpatient Elevated d-dimer Negative CT angiogram of the chest Hypertension, Continue home medications GERD Pepcid Disposition: - TO HOME OR SELFCARE - Discharge Diagnoses (1) Acute heart failure with preserved ejection fraction (HFpEF) Status: Acute (2) Acute hypoxemic respiratory failure Status: Acute (3) Pulmonary nodules Status: Acute (4) HTN (hypertension) Status: Chronic Qualifiers: Hypertension type: essential hypertension Qualified Code(s): I10 - Essential (primary) hypertension (5) Hyperlipidemia Status: Chronic Core Measure Documentation - Palliative Care Palliative Care/ Comfort Measures: Not Applicable - Core Measures Any of the following diagnoses?: heart failure - Heart Failure Discharge Requirements RYAN/ARB for LVSD if EF <40%: Yes Beta tucker at discharge: No Reason for no beta tucker on DC: Hypotension Exam - Constitutional Vitals: Temp Pulse Resp BP Pulse Ox 97.9 F 85 18 103/58 97 06/28/19 07:31 06/28/19 10:43 06/28/19 10:34 06/28/19 10:43 06/28/19 10:39 Plan Activity: advance as tolerated Diet: low fat, low cholesterol, low salt Plan of Treatment: 1.Follow up with PCP in 1 week. 2.Follow up with Dr. Lundberg in 3-5 days Follow up with: RENATA OGLESBY MD [Primary Care Provider] - 3-5 Days Prescriptions: amLODIPine 5 mg PO DAILY #30 tab Furosemide [Lasix TAB] 40 mg PO QDAY #30 tablet Famotidine [Pepcid] 20 mg PO BID #60 tablet
[2019-06-29] MEDS ORDERED: FUROSEMIDE 40 MG TAB PO SCH (10:00)
== END 2019-06-28 19:01 | disposition home or self-care (01) | DRG 291 ==
LOC: ED 04:07 → 2B-ACE 07:40 → OBSVTOIN 06-26 09:40
PROVIDERS: ADMIT Internal Medicine; ATTEND Internal Medicine
PROC: 4A033R1 Measurement of Arterial Saturation, Peripheral, Percutaneous Approach (ICD-10-PCS; 2019-06-25)
PROC: 3E0234Z Introduction of Serum, Toxoid and Vaccine into Muscle, Percutaneous Approach (ICD-10-PCS; principal; 2019-06-26)
DX: I11.0 Hypertensive heart disease with heart failure (principal); J96.01 Acute respiratory failure with hypoxia; I50.31 Acute diastolic (congestive) heart failure; I27.20 Pulmonary hypertension, unspecified; G89.29 Other chronic pain; J20.9 Acute bronchitis, unspecified; M19.90 Unspecified osteoarthritis, unspecified site; R91.8 Other nonspecific abnormal finding of lung field; G47.33 Obstructive sleep apnea (adult) (pediatric); I08.1 Rheumatic disorders of both mitral and tricuspid valves; K21.9 Gastro-esophageal reflux disease without esophagitis; Z23 Encounter for immunization; Z79.899 Other long term (current) drug therapy; Z87.891 Personal history of nicotine dependence; Z88.1 Allergy status to other antibiotic agents
CPT/HCPCS: 36415; 71045; 71275; 80048; 80053; 82550; 82803; 83735; 83880; 84484; 85025; 85027; 85379; 85610; 85730; 90471; 90686; 90732; 93005; 93010; 93306; 93970; 94640; 94644; 94760; 96365; 96375; G0378; A9270-GY; G0008; G0009; J1650; J1940; J2930; J3475; J7040; Q9967